=== PATIENT | male | born 1970 | race African-American/Black ===

== ENCOUNTER 2018-04-04 08:26 | Inpatient (IN) | payer MEDICARE, MEDICAID ==
[2018-04-04] VITALS (24 sets, daily range): BP systolic 115–164; BP diastolic 41–103
[~2018-04-04] VITALS: Ht 185.4 cm; Wt 96.6 kg
[2018-04-04] MEDS ORDERED: LACTATED RINGERS 1,000 ML IV SCH (11:15)
[2018-04-04] MEDS ORDERED: EPHEDRINE SULFATE 50MG/ML VIAL ONE (11:43)
[2018-04-04] MEDS ORDERED: FENTANYL CITRATE/PF 50MCG/ML 5ML VIAL ONE (11:43)
[2018-04-04] MEDS ORDERED: PHENYLEPHRINE HCL 10 MG/ML 1ML (IV VIAL) IV ONE (11:43)
[2018-04-04] MEDS ORDERED: PROPOFOL 200MG/20ML VIAL IV ONE ×3 (11:43→14:10)
[2018-04-04] MEDS ORDERED: SUCCINYLCHOLINE CHLORIDE 200MG/10ML VIAL IV ONE (11:43)
[2018-04-04] MEDS ORDERED: ROCURONIUM BROMIDE 10MG/ML VIAL 5ML IV ONE ×2 (11:46→13:34)
[2018-04-04] MEDS ORDERED: NORMAL SALINE 0.9% 10 ML SYR ONE (12:09)
[2018-04-04] MEDS ORDERED: THROMBIN (BOVINE) 5000 UNITS/VIAL TOP ONE ×2 (12:10→14:23)
[2018-04-04] MEDS ORDERED: LIDOCAINE HCL/EPINEPHRINE 1%-EPI 1:100,000 20 ML VIAL ONE (12:10)
[2018-04-04] MEDS ORDERED: BACITRACIN 50,000 UNITS/VIAL ONE (12:11)
[2018-04-04] MEDS ORDERED: GELATIN SPONGE,COMPRESSED SZ 100 ONE (12:11)
[2018-04-04 12:19] LABS: PARTIAL THROMBOPLASTIN TIME 43.9 sec (23.4-31.0); PROTHROMBIN TIME 10.7 sec (9.4-11.6)
[2018-04-04 12:33] LABS: CLARITY URINE CLEAR (CLEAR); COLOR URINE YELLOW (YELLOW); KETONES URINE NEGATIVE (NEGATIVE); LEUKOCYTE ESTERASE URINE NEGATIVE (NEGATIVE); NITRITE URINE NEGATIVE (NEGATIVE); OCCULT BLOOD URINE NEGATIVE (NEGATIVE); PH URINE 6.5 (4.5-8.0); PROTEIN URINE NEGATIVE (NEGATIVE); SPECIFIC GRAVITY URINE 1.016 (1.005-1.030)
[2018-04-04] MEDS ORDERED: LIDOCAINE HCL/PF 1% 10 MG/ML 5ML VIAL ONE (13:02)
[2018-04-04] MEDS ORDERED: HYDROMORPHONE HCL/PF 2MG/ML (OR) ONE (13:17)
[2018-04-04] MEDS ORDERED: CEFAZOLIN SODIUM 1000MG/VIAL ONE (13:17)
[2018-04-04] MEDS ORDERED: FENTANYL CITRATE/PF 50MCG/ML 2ML VIAL ONE (13:27)
[2018-04-04] MEDS ORDERED: ESMOLOL HCL 10MG/ML 10ML VIAL IV ONE (13:27)
[2018-04-04] MEDS ORDERED: VIAG100 PO (13:43)
[2018-04-04] MEDS ORDERED: TRAM50TA PO (13:43)
[2018-04-04] MEDS ORDERED: LABETALOL HCL 5MG/ML VIAL 20ML IV ONE (14:10)
[2018-04-04] MEDS ORDERED: NEOSTIGMINE METHYLSULFATE 1MG/ML 10 ML VIAL ONE (15:23)
[2018-04-04] MEDS ORDERED: GLYCOPYRROLATE 0.2 MG/ML 2ML VIAL ONE (15:23)
[2018-04-04] MEDS ORDERED: ONDANSETRON HCL 4MG/2ML VIAL ONE (15:31)
[2018-04-04] MEDS ORDERED: ACETAMINOPHEN 325MG TABLET PO PRN (16:00)
[2018-04-04] MEDS ORDERED: HYDROCODONE/ACETAMINOPHEN 10/325MG TABLET PO PRN (16:00)
[2018-04-04] MEDS ORDERED: ONDANSETRON HCL 4MG/2ML VIAL IV PRN (16:00)
[2018-04-04] MEDS ORDERED: IPRATROPIUM/ALBUTEROL 0.5-3(2.5)MG/3ML NEB INH PRN (16:00)
[2018-04-04] MEDS ORDERED: IPRATROPIUM/ALBUTEROL 0.5-3(2.5)MG/3ML NEB HHN PRN (16:15)
[2018-04-04] MEDS ORDERED: ONDANSETRON INJ IV PRN (17:00)
[2018-04-04] MEDS ORDERED: NALOXONE INJ IV PRN (17:00)
[2018-04-04] MEDS ORDERED: DIPHENHYDRAMINE INJ IV PRN (17:00)
[2018-04-04] MEDS: DEXT 5%/LACTATED RINGERS 1,000 ML IV SCH (17:11)
[2018-04-04] MEDS ORDERED: HYDROMORPHONE HCL/PF 2MG/ML CPJ IV NR (17:15)
[2018-04-04] MEDS: HYDROMORPHONE PCA 10MG/50ML IV PRN (17:24)
[2018-04-04] MEDS ORDERED: NICARDIPINE 100 MG in SODIUM CHLORIDE 0.9% 60 ML IV PRN ×4 (17:30)
[2018-04-04] MEDS: DOCUSATE SODIUM 250MG CAPSULE PO SCH (18:45)
[2018-04-04] MEDS: DEXAMETHASONE 4MG/ML 1ML VIAL IV SCH (19:03)
[2018-04-04] MEDS: CEFAZOLIN 1000MG PREMIX 50 ML IV SCH (19:03)
[2018-04-04] MEDS ORDERED: SENNOSIDES/DOCUSATE SOD 8.6/50MG TABLET PO PRN (21:00)
[2018-04-04] MEDS ORDERED: CEFAZOLIN SODIUM 1000MG/VIAL IV SCH (22:00)
[2018-04-05] VITALS (36 sets, daily range): BP systolic 95–149; BP diastolic 48–87
[2018-04-05] MEDS: DEXAMETHASONE 4MG/ML 1ML VIAL IV SCH ×4 (00:19→18:41)
[2018-04-05] MEDS: DEXT 5%/LACTATED RINGERS 1,000 ML IV SCH ×3 (00:20→17:00)
[2018-04-05] MEDS: CEFAZOLIN 1000MG PREMIX 50 ML IV SCH ×2 (02:06→09:35)
[2018-04-05 05:32] LABS: HEMATOCRIT. 36.5 % (42.0-52.0); HEMOGLOBIN. 12.5 g/dL (14.0-18.0); MEAN CORPUSCULAR HEMOGLOBIN 31.2 pg (28.0-32.0); MEAN CORPUSCULAR VOLUME 91.1 fL (80.0-94.0); MEAN PLATELET VOLUME 8.1 fl (7.4-10.4); PLATELET 233 x1000/uL (130-400); RED BLOOD CELL COUNT 4.01 mill/uL (4.7-6.1); RED CELL DISTRIBUTION WIDTH 13.7 % (11.6-14.6)
[2018-04-05 05:39] LABS: CHLORIDE 108 mEq/L (98-107)
[2018-04-05] MEDS: PANTOPRAZOLE SODIUM 40 MG/VIAL IV SCH (09:34)
[2018-04-05] MEDS: DOCUSATE SODIUM 250MG CAPSULE PO SCH (09:34)
[2018-04-05 10:57] LABS: PLATELET ESTIMATE NORMAL
[2018-04-05] MEDS: OXYCODONE HCL/ACETAMINOPHEN 5/325MG TABLET PO PRN ×2 (12:57→19:30)
[2018-04-06] VITALS (30 sets, daily range): BP systolic 102–149; BP diastolic 60–93
[2018-04-06] MEDS: DEXT 5%/LACTATED RINGERS 1,000 ML IV SCH ×4 (01:19→16:40)
[2018-04-06] MEDS: OXYCODONE HCL/ACETAMINOPHEN 5/325MG TABLET PO PRN ×4 (01:23→20:24)
[2018-04-06 05:49] LABS: HEMOGLOBIN. 11.7 g/dL (14.0-18.0); LYMPHOCYTES % 7.8 % (20.0-50.0); MEAN CORPUSCULAR HEMOGLOBIN 31.2 pg (28.0-32.0); MEAN CORPUSCULAR VOLUME 90.8 fL (80.0-94.0); MEAN PLATELET VOLUME 8.5 fl (7.4-10.4); MONOCYTES % 9.1 % (2.0-8.0); NEUTROPHILS % 83.1 % (40.0-76.0); PLATELET 230 x1000/uL (130-400); RED BLOOD CELL COUNT 3.74 mill/uL (4.7-6.1); RED CELL DISTRIBUTION WIDTH 13.7 % (11.6-14.6)
[2018-04-06 05:59] LABS: CHLORIDE 104 mEq/L (98-107)
[2018-04-06 06:06] LABS: PHOSPHORUS 2.9 mg/dL (2.5-4.9)
[2018-04-06] MEDS: PANTOPRAZOLE SODIUM 40 MG/VIAL IV SCH (08:15)
[2018-04-06] MEDS: DOCUSATE SODIUM 250MG CAPSULE PO SCH (08:16)
[2018-04-06] MEDS ORDERED: NA PHOS,M-B/NA PHOS,DI-BA ENEMA 118ML PR PRN (10:45)
[2018-04-06] MEDS: HYDROMORPHONE PCA 10MG/50ML IV PRN (13:31)
[2018-04-06] MEDS: SENNOSIDES/DOCUSATE SOD 8.6/50MG TABLET PO SCH (20:23)
[2018-04-06] MEDS ORDERED: MORPHINE SULFATE 4 MG/ML CPJ (NOT FOR IM USE) IV PRN (22:15)
[2018-04-07] VITALS: BP 143/80
[2018-04-07 04:00] VITALS: BP 109/63
[2018-04-07] MEDS: OXYCODONE HCL/ACETAMINOPHEN 5/325MG TABLET PO PRN (05:37)
[2018-04-07 07:10] LABS: BASOPHILS % 0.1 % (0.0-2.0); EOSINOPHILS % 0.4 % (0.0-5.0); HEMOGLOBIN. 11.7 g/dL (14.0-18.0); LYMPHOCYTES % 10.5 % (20.0-50.0); MEAN CORPUSCULAR HEMOGLOBIN 31.6 pg (28.0-32.0); MEAN CORPUSCULAR VOLUME 89.4 fL (80.0-94.0); MONOCYTES % 8.8 % (2.0-8.0); NEUTROPHILS % 80.2 % (40.0-76.0); PLATELET 209 x1000/uL (130-400); RED CELL DISTRIBUTION WIDTH 13.8 % (11.6-14.6)
[2018-04-07 08:00] VITALS: BP 114/63
[2018-04-07] MEDS: DOCUSATE SODIUM 250MG CAPSULE PO SCH (08:26)
[2018-04-07 08:47] LABS: CHLORIDE 99 mEq/L (98-107)
[2018-04-07 09:56] LABS: PHOSPHORUS 2.8 mg/dL (2.5-4.9)
[2018-04-07 12:00] VITALS: BP 126/83
[2018-04-07 16:00] VITALS: BP 94/70
[2018-04-07] MEDS: SENNOSIDES/DOCUSATE SOD 8.6/50MG TABLET PO SCH (21:36)
[2018-04-08] VITALS: BP 118/80
[2018-04-08] MEDS: LACTULOSE 20G/30ML UDC PO SCH ×4 (00:40→21:03)
[2018-04-08 04:00] VITALS: BP 131/65
[2018-04-08 08:00] VITALS: BP 107/54
[2018-04-08 08:01] LABS: BASOPHILS % 0.1 % (0.0-2.0); EOSINOPHILS % 1.1 % (0.0-5.0); HEMATOCRIT. 34.7 % (42.0-52.0); HEMOGLOBIN. 11.9 g/dL (14.0-18.0); LYMPHOCYTES % 16.8 % (20.0-50.0); MEAN CORPUSCULAR VOLUME 90.5 fL (80.0-94.0); MEAN PLATELET VOLUME 7.8 fl (7.4-10.4); MONOCYTES % 11.5 % (2.0-8.0); NEUTROPHILS % 70.5 % (40.0-76.0); PLATELET 251 x1000/uL (130-400); RED BLOOD CELL COUNT 3.83 mill/uL (4.7-6.1); RED CELL DISTRIBUTION WIDTH 13.5 % (11.6-14.6)
[2018-04-08] MEDS: DOCUSATE SODIUM 250MG CAPSULE PO SCH (08:34)
[2018-04-08 08:55] LABS: CHLORIDE 96 mEq/L (98-107)
[2018-04-08 09:19] LABS: PHOSPHORUS 3.8 mg/dL (2.5-4.9)
[2018-04-08 11:44] VITALS: BP 133/78
[2018-04-08 16:00] VITALS: BP 103/72
[2018-04-08 20:00] VITALS: BP 113/64
[2018-04-08] MEDS: SENNOSIDES/DOCUSATE SOD 8.6/50MG TABLET PO SCH (21:07)
[2018-04-09] VITALS: BP 110/59
[2018-04-09 04:00] VITALS: BP 121/61
[2018-04-09] MEDS: LACTULOSE 20G/30ML UDC PO SCH ×3 (06:14→21:22)
[2018-04-09 08:00] VITALS: BP 129/82
[2018-04-09] MEDS: DOCUSATE SODIUM 250MG CAPSULE PO SCH (08:49)
[2018-04-09 12:00] VITALS: BP 118/55
[2018-04-09 16:00] VITALS: BP 110/69
[2018-04-09 20:00] VITALS: BP 141/94
[2018-04-09] MEDS: SENNOSIDES/DOCUSATE SOD 8.6/50MG TABLET PO SCH (20:30)
[2018-04-10] VITALS: BP 109/66
[2018-04-10 04:00] VITALS: BP 120/80
[2018-04-10] MEDS: LACTULOSE 20G/30ML UDC PO SCH (06:00)
[2018-04-10 07:11] LABS: CHLORIDE 93 mEq/L (98-107)
[2018-04-10 07:12] LABS: BASOPHILS % 0.3 % (0.0-2.0); EOSINOPHILS % 1.4 % (0.0-5.0); HEMATOCRIT. 35.6 % (42.0-52.0); HEMOGLOBIN. 12.5 g/dL (14.0-18.0); LYMPHOCYTES % 19.6 % (20.0-50.0); MEAN CORPUSCULAR HEMOGLOBIN 31.2 pg (28.0-32.0); MEAN CORPUSCULAR VOLUME 89.2 fL (80.0-94.0); MEAN PLATELET VOLUME 7.6 fl (7.4-10.4); MONOCYTES % 14.6 % (2.0-8.0); NEUTROPHILS % 64.1 % (40.0-76.0); PLATELET 351 x1000/uL (130-400); RED BLOOD CELL COUNT 3.99 mill/uL (4.7-6.1); RED CELL DISTRIBUTION WIDTH 13.7 % (11.6-14.6)
[2018-04-10 08:00] VITALS: BP 115/78
[2018-04-10] MEDS: DOCUSATE SODIUM 250MG CAPSULE PO SCH (09:05)
[2018-04-10 12:00] VITALS: BP 130/82
[2018-04-10] MEDS ORDERED: ACET-2178 PO (13:59)
[2018-04-10] MEDS ORDERED: DOCU250C14 PO (13:59)
[2018-04-10 14:52] VITALS: BP 130/82
== END 2018-04-10 15:15 | disposition home health service (06) | DRG 459 ==
LOC: ORIP 11:02 → MICUSO 16:52 → 6EST 04-06 23:05
PROVIDERS: ADMIT Internal Medicine; ATTEND Internal Medicine
PROC: 0RG7071 Fusion of 2 to 7 Thoracic Vertebral Joints with Autologous Tissue Substitute, Posterior Approach, Posterior Column, Open Approach (ICD-10-PCS; principal; 2018-04-04 12:30)
PROC: 4A11X4G Monitoring of Peripheral Nervous Electrical Activity, Intraoperative, External Approach (ICD-10-PCS; 2018-04-08)
DX: M48.04 Spinal stenosis, thoracic region (principal); G82.50 Quadriplegia, unspecified; M47.14 Other spondylosis with myelopathy, thoracic region; G95.20 Unspecified cord compression; M51.04 Intervertebral disc disorders with myelopathy, thoracic region; F41.9 Anxiety disorder, unspecified; N52.9 Male erectile dysfunction, unspecified; R26.9 Unspecified abnormalities of gait and mobility; Z88.8 Allergy status to other drugs, medicaments and biological substances
CPT/HCPCS: 36415; 72070; 72146; 80048; 81003; 83735; 84100; 85025; 85610; 85730; 86850; 86900; 87086; 93970; 97116; 97162; 97166; 97530; 97535; A4216; C9113; J0330; J0690; J1100; J1170; J2270; J2370; J2405; J2704; J2710; J3010; J3490; J7120